=== PATIENT | male | born 1980 ===

== ENCOUNTER 2017-04-17 09:54 | Emergency (ER) | payer OTHER ==
[2017-04-17 10:00] VITALS: RESP 20
[2017-04-17] MEDS ORDERED: Oxycodone/Acetaminophen 5/325 mg Tab PO STA (10:37)
[2017-04-17] MEDS ORDERED: Oxycodone/Acetaminophen 5/325 mg Tab ONE (10:50)
--- NOTE | 2017-04-17 11:14 | RAD ---
PROCEDURE: Radiographs of the Lumbar Spine. HISTORY: back pain COMPARISON: None available. FINDINGS: BONES: Alignment appears satisfactory. No listhesis. No acute displaced fracture identified. DISC SPACES: Unremarkable. OTHER FINDINGS: None. IMPRESSION: No acute displaced fracture or subluxation identified.
--- NOTE | 2017-04-17 11:36 | C.PDOC ---
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 Patient reports similar pain when having back pain exacerbation. Patient denies bowel/bladder incontinence, saddle anesthesia , testicular pain, fever, chills, dysuria or any other complaints at this time. Time Seen by Provider: 04/17/17 10:25 Chief Complaint (Nursing): Back Pain History Per: Patient History/Exam Limitations: no limitations Onset/Duration Of Symptoms: Days Current Symptoms Are (Timing): Still Present Quality Of Discomfort: "Pain" Past Medical History Reviewed: Historical Data, Nursing Documentation, Vital Signs Vital Signs: Last Vital Signs Temp 97.3 F L 04/17/17 10:00 Pulse 74 04/17/17 10:00 Resp 20 04/17/17 10:00 BP 129/83 04/17/17 10:00 Pulse Ox 100 04/17/17 11:36 - Medical History PMH: No Chronic Diseases Surgical History: No Surg Hx Family History: States: No Known Family Hx - Social History Hx Alcohol Use: No Hx Substance Use: No Review Of Systems Except As Marked, All Systems Reviewed And Found Negative. Musculoskeletal: Positive for: Back Pain Physical Exam - Physical Exam Appears: Non-toxic, No Acute Distress Skin: Warm, Dry, No Rash Head: Atraumatic, Normacephalic Oral Mucosa: Moist Neck: Normal ROM, Supple Cardiovascular: Rhythm Regular, No Murmur Respiratory: Normal Breath Sounds, No Rales, No Rhonchi, No Wheezing Gastrointestinal/Abdominal: Soft, No Tenderness, No Guarding, No Rebound Back: No CVA Tenderness, Muscle Spasm, No Straight Leg Raising, Other (Right paralumbar region tenderness) Neurological/Psych: Oriented x3, Normal Motor, Normal Sensation ED Course And Treatment O2 Sat by Pulse Oximetry: 100 (RA) Pulse Ox Interpretation: Normal Medical Decision Making Medical Decision Making: Assessment: Low back pain Progress: On re eval pt feeling better d/c home with advised follow up with PMD in 2 days. Disposition Counseled Patient/Family Regarding: Studies Performed, Diagnosis, Need For Followup, Rx Given - Disposition Disposition: HOME/ ROUTINE Disposition Time: 11:34 Condition: STABLE Additional Instructions: follow up with your doctor in 2 days call to make an appointment take medications as prescribed return to ER if symptoms worsens or progress Prescriptions: Acetaminophen/Codeine [Tylenol/Codeine 300 MG/30 MG] 1 tab PO Q6H PRN #12 tab PRN Reason: Pain, Severe (8-10) Naproxen [Naprosyn] 500 mg PO BID PRN #16 tab PRN Reason: Pain, Moderate (4-7) Instructions: Low Back Pain (DC) Forms: Gen Discharge Inst Mauritian, [facility] (Mauritian), Work Excuse Print Language: AMHARIC - Clinical Impression Clinical Impression: Low back pain - Scribe Statement The provider has reviewed the documentation as recorded by the [facility] All medical record entries made by the Maryellenibjonah were at my direction and personally dictated by me. I have reviewed the chart and agree that the record accurately reflects my personal performance of the history, physical exam, medical decision making, and the department course for this patient. I have also personally directed, reviewed, and agree with the discharge instructions and disposition.
[2017-04-17 12:03] VITALS: BP 123/76; PULSE 75; TEMP 98
[2017-04-19 11:00] VITALS: O2SAT 100
== END 2017-04-17 12:03 | disposition home or self-care (01) ==
LOC: C.ER 09:54
DX: M54.5 Low back pain (principal)

== ENCOUNTER 2017-05-21 13:04 | Emergency (ER) | payer OTHER ==
[2017-05-21 13:16] VITALS: BP 130/83; PULSE 84; RESP 18; TEMP 98.1; O2SAT 100
[2017-05-21] MEDS ORDERED: Lidocaine 5% Patch TD STA (13:26)
[2017-05-21] MEDS ORDERED: Lidocaine 5% Patch TD ONE (13:33)
--- NOTE | 2017-05-21 13:35 | C.PDOC ---
History Of Present Illness 37 y/o male presents to ED with complaints of worsening low back pain radiating to right leg for 3 days with associated tingling. Patient was sen previously seen at ED for same symptoms given medication and advised to follow up with clinic, patient states he did not follow up. Patient admits to heavy lifting at work and states medication previously prescribed did not improve symptoms. Patient denies abdominal pain, nausea, vomiting or change in sensation. Time Seen by Provider: 05/21/17 13:17 Chief Complaint (Nursing): Back Pain History Per: Patient History/Exam Limitations: no limitations Onset/Duration Of Symptoms: Days Current Symptoms Are (Timing): Still Present Quality Of Discomfort: "Pain" Past Medical History Reviewed: Historical Data, Nursing Documentation, Vital Signs Vital Signs: Last Vital Signs Temp 98.1 F 05/21/17 13:15 Pulse 84 05/21/17 13:15 Resp 18 05/21/17 13:15 BP 130/83 05/21/17 13:15 Pulse Ox 100 05/21/17 13:47 - Medical History PMH: No Chronic Diseases Surgical History: No Surg Hx Family History: States: No Known Family Hx - Social History Hx Alcohol Use: No Hx Substance Use: No Review Of Systems Gastrointestinal: Negative for: Nausea, Vomiting Musculoskeletal: Positive for: Back Pain, Leg Pain Skin: Negative for: Rash Neurological: Negative for: Weakness, Numbness Physical Exam - Physical Exam Appears: Non-toxic, No Acute Distress Skin: Warm, Dry, No Rash Head: Atraumatic, Normacephalic Oral Mucosa: Moist Neck: Normal ROM, Supple Cardiovascular: Rhythm Regular Respiratory: Normal Breath Sounds, No Rales, No Rhonchi, No Wheezing Back: No CVA Tenderness, Other (Right sided paralumbar tenderness) Extremity: Bilateral: Atraumatic, Normal ROM Pulses: Left Radial: Normal, Right Radial: Normal Neurological/Psych: Oriented x3, Normal Motor, Normal Sensation Gait: Steady ED Course And Treatment O2 Sat by Pulse Oximetry: 100 (RA) Pulse Ox Interpretation: Normal Medical Decision Making Medical Decision Making: Impression: Back pain, sciatica Plan: * Toradol * Valium * Lidoderm patch Re-eval: 1430 Patient is now feeling better and ambulatory without signs of discomfort. Patient has no vertebral tenderness, saddle anesthesia or weakness. Patient stable for discharge Rx given. Disposition Counseled Patient/Family Regarding: Diagnosis, Need For Followup, Rx Given - Disposition Referrals: Xi Hanna MD [Staff Provider] - Disposition: HOME/ ROUTINE Disposition Time: 14:35 Condition: IMPROVED Additional Instructions: Apply heat to area 15 minutes three times a day. Take Motrin as needed for pain every 6 hours, with food to not upset stomach. Take Flexeril for muscle pain and spasm, caution can cause drowsiness. Follow up with orthopedic if pain persists over one week. Aplique calor al monalisa 15 minutos bianca veces al da. [place] Motrin cuando sea necesario para el dolor cada 6 horas, con alimentos para no alterar el est thony. [place] Flexeril para el dolor y el espasmo muscular, la precaucin puede causar somnolencia. Tracy un seguimiento con ortopedia si el dolor persiste jeremy scout semana. Prescriptions: Cyclobenzaprine [Cyclobenzaprine HCl] 10 mg PO TID #30 tab Gabapentin 300 mg PO DAILY #20 capsule Ibuprofen [Motrin] 600 mg PO Q8 #30 tab Instructions: Sciatica Forms: [employer] (Icelandic) Print Language: KYRGYZ - POA Present On Arrival: None - Clinical Impression Clinical Impression: Sciatica, Low back strain - PA / CLINICAL DATA ANALYST / Resident Statement MD/DO has reviewed & agrees with the documentation as recorded. - Scribe Statement The provider has reviewed the documentation as recorded by the Maryellenibjonah [facility] All medical record entries made by the Maryellenibjonah were at my direction and personally dictated by me. I have reviewed the chart and agree that the record accurately reflects my personal performance of the history, physical exam, medical decision making, and the department course for this patient. I have also personally directed, reviewed, and agree with the discharge instructions and disposition.
== END 2017-05-21 14:43 | disposition home or self-care (01) ==
LOC: C.ER 13:04
DX: M54.30 Sciatica, unspecified side (principal); S39.012A Strain of muscle, fascia and tendon of lower back, initial encounter; X50.0XXA Overexertion from strenuous movement or load, initial encounter; Y92.89 Other specified places as the place of occurrence of the external cause
CPT/HCPCS: 96372; 99282; J1885